=== PATIENT | male | born 1970 | race Caucasian/White ===

== ENCOUNTER 2016-08-01 16:37 | Emergency (ER) | payer OTHER | END 2016-08-01 17:50 | disposition home or self-care (01) | LOC: ER 16:37 | DX: J11.1 Influenza due to unidentified influenza virus with other respiratory manifestations (principal); R42 Dizziness and giddiness; M06.9 Rheumatoid arthritis, unspecified; F17.210 Nicotine dependence, cigarettes, uncomplicated | CPT/HCPCS: 87502; 87651; 96372; J1100 ==